=== PATIENT | female | born 1985 | race Caucasian/White ===

== ENCOUNTER → 2017-02-02 | Outpatient (CLI) | payer OTHER ==
[~2017-02-02] MED LIST: ALBU17IN; ALBU83IN; AMOX500C PO; BENA25CA4 PO; IBUP600T26; LIDO1SOL7 MT
--- NOTE | 2017-02-02 18:17 | REP ---
THYROID ULTRASOUND: HISTORY: Goiter. COMPARISON: None. The right lobe of the thyroid gland measures 3.9 x 1.7 x 1.5 cm. The left lobe measures 6.2 x 3.4 x 4.3 cm. The isthmus measures 3.6 mm. In the superior pole of the right lobe there is a solid nodule which measures 1 x 1.3 x 0.8 cm. In the left lobe there is a large mixed complex lesion which measures 3.9 x 5.2 x 2.8 cm. IMPRESSION: Solid right lobe nodule and mixed left lobe nodule as described above. Signed by Parker Wilson DO 02/02/2017 06:43 P
== END ==
LOC: M RAD 16:56
PROVIDERS: ATTEND Physician Assistant Medical
DX: E04.2 Nontoxic multinodular goiter (principal)

== ENCOUNTER 2017-02-04 12:28 | Emergency (ER) | payer OTHER ==
[~2017-02-04] VITALS: Ht 170.2 cm; Wt 108.4 kg
[2017-02-04 12:30] VITALS: BP 135/91
[2017-02-04] MEDS ORDERED: ALBU83IN (12:50)
[2017-02-04] MEDS ORDERED: BENA25CA4 PO (12:50)
[2017-02-04] MEDS ORDERED: ALBU17IN (12:50)
[2017-02-04] MEDS ORDERED: IBUP600T26 (12:50)
[2017-02-04] MEDS ORDERED: AMOX500C PO (13:02)
[2017-02-04] MEDS ORDERED: LIDO1SOL7 MT (13:02)
== END 2017-02-04 13:17 | disposition home or self-care (01) ==
LOC: M ED 13:04
DX: J02.9 Acute pharyngitis, unspecified (principal); J45.909 Unspecified asthma, uncomplicated; F99 Mental disorder, not otherwise specified; E66.9 Obesity, unspecified; Z88.5 Allergy status to narcotic agent; Z88.8 Allergy status to other drugs, medicaments and biological substances; Z88.2 Allergy status to sulfonamides

== ENCOUNTER 2017-03-25 14:37 | Emergency (ER) | payer OTHER ==
[~2017-03-25] VITALS: Ht 167.6 cm; Wt 108.9 kg
[2017-03-25 14:38] VITALS: BP 128/79
[2017-03-25] MEDS ORDERED: [UNRECOGNIZED DRUG - OTHER] PO (14:54)
[2017-03-25] MEDS ORDERED: IPRATROPIUM 0.5MG/ALBUTEROL 2.5MG INH SOL UD 3ML (DUONEB)(J7620) NEB ONE (15:15)
[2017-03-25] MEDS ORDERED: TESS100C PO (16:03)
--- NOTE | 2017-03-26 07:01 | REP ---
CHEST, TWO VIEWS: COMPARISON: 05/12/2015. There is no evidence of acute infiltrate. No pleural effusion is seen. The heart is normal in size. The mediastinal silhouette is unremarkable. The visualized osseous structures are intact. IMPRESSION: No acute pulmonary disease. Signed by Román Varela MD 03/26/2017 07:50 P
== END 2017-03-25 16:24 | disposition home or self-care (01) ==
LOC: M ED 15:09
DX: B34.9 Viral infection, unspecified (principal); R05 Cough; J45.909 Unspecified asthma, uncomplicated; F41.9 Anxiety disorder, unspecified; Z88.1 Allergy status to other antibiotic agents; Z88.2 Allergy status to sulfonamides; Z88.5 Allergy status to narcotic agent; Z88.6 Allergy status to analgesic agent; Z88.8 Allergy status to other drugs, medicaments and biological substances

== ENCOUNTER 2017-04-10 11:25 | Emergency (ER) | payer OTHER ==
[~2017-04-10] VITALS: Ht 170.2 cm; Wt 77.1 kg
[~2017-04-10 11:25] MED LIST changes: +TESS100C PO; +[UNRECOGNIZED DRUG - OTHER] PO
[2017-04-10 11:26] VITALS: BP 115/69
[2017-04-10] MEDS ORDERED: PERC5TAB6 PO (12:25)
[2017-04-10] MEDS ORDERED: PERCOCET 5MG/325MG TAB PO ONE (12:30)
== END 2017-04-10 12:43 | disposition home or self-care (01) ==
LOC: M ED 12:14
DX: S83.91XA Sprain of unspecified site of right knee, initial encounter (principal); W01.198A Fall on same level from slipping, tripping and stumbling with subsequent striking against other object, initial encounter; Y92.89 Other specified places as the place of occurrence of the external cause; Y93.89 Activity, other specified; Y99.8 Other external cause status; F41.0 Panic disorder [episodic paroxysmal anxiety]; F42.9 Obsessive-compulsive disorder, unspecified

== ENCOUNTER → 2017-07-11 | Outpatient (CLI) | payer OTHER ==
[~2017-07-11] MED LIST changes: +IBUP-1022; -IBUP600T26; +PERC5TAB12 PO
--- NOTE | 2017-07-11 20:21 | REP ---
Clinical: Back pain . Technique: AP, lateral, bilateral oblique, and coned-down views. Findings: Alignment and lordosis is maintained. The vertebral bodies including transverse process and spinous processes are intact and normal for age. There is no evidence for acute fracture / compression injury or subluxation. No evidence for spondylolysis or spondylolisthesis. Age-related changes are appreciated without obvious overt degenerative changes by radiographic evaluation. Impression: Age appropriate lumbosacral spine radiograph series. If the patient remains symptomatic consider MRI for further investigation. Signed by Kendell Vasquez MD 07/11/2017 08:12 P
--- NOTE | 2017-07-11 20:22 | REP ---
Clinical: thoracic back pain. Technique: AP, lateral, and swimmers views. Findings: Alignment and kyphosis is maintained. Vertebral bodies intact. No acute fracture / compression injury or subluxation. Minimal age-related changes are appreciated. Paravertebral soft tissues are normal. Impression: Age appropriate thoracic spine series. Signed by Kendell Vasquez MD 07/11/2017 08:13 P
== END ==
LOC: M WUC 18:49
PROVIDERS: ATTEND Nurse Practitioner Family
DX: M54.6 Pain in thoracic spine (principal)

== ENCOUNTER 2017-07-12 19:51 | Emergency (ER) | payer OTHER ==
[~2017-07-12] VITALS: Ht 167.6 cm; Wt 229.0 kg
[2017-07-12] MEDS ORDERED: KETOROLAC 30 MG/ML VIAL (J1885) IV ONE (20:15)
[2017-07-12] MEDS ORDERED: NS 1,000 ML IV ONE (20:15)
[2017-07-12] MEDS ORDERED: METOCLOPRAMIDE INJ 10MG/2ML VIAL (J2765) IV ONE (20:15)
[2017-07-12 21:04] VITALS: BP 138/83
[2017-09-16] MEDS ORDERED: TESS100C PO (15:47)
== END 2017-07-12 21:06 | disposition home or self-care (01) ==
LOC: M ED 20:19
DX: G43.909 Migraine, unspecified, not intractable, without status migrainosus (principal); G89.29 Other chronic pain; E66.9 Obesity, unspecified; F99 Mental disorder, not otherwise specified; Z79.899 Other long term (current) drug therapy; Z88.5 Allergy status to narcotic agent; Z88.8 Allergy status to other drugs, medicaments and biological substances; Z88.1 Allergy status to other antibiotic agents; Z88.2 Allergy status to sulfonamides
CPT/HCPCS: 96374; 96375; 99283; J1885; J2765

== ENCOUNTER → 2017-10-27 | Outpatient (CLI) | payer OTHER | LOC: M WUC 13:40 | PROVIDERS: ATTEND Otolaryngology | DX: E04.1 Nontoxic single thyroid nodule (principal) ==

== ENCOUNTER 2017-12-13 10:23 | Emergency (ER) | payer OTHER ==
[2017-12-13] MEDS: IBUPROFEN 800 MG TAB PO (11:15)
[2017-12-13] MEDS: PERCOCET 5MG/325MG TAB PO (11:33)
[2017-12-13] MEDS: METHOCARBAMOL 500 MG TAB PO (11:33)
== END 2017-12-13 11:35 | disposition home or self-care (01) ==
LOC: M ED 10:23
DX: M54.17 Radiculopathy, lumbosacral region (principal); M54.42 Lumbago with sciatica, left side
CPT/HCPCS: 99282

== ENCOUNTER 2017-12-22 10:43 | Emergency (ER) | payer OTHER ==
[2017-12-22 12:20] LABS: BASO % 0.5 % (0.0-1.0); EOS # 0.1 10^3/uL (0.0-0.50); EOS % 1.4 % (0.0-3.0); HEMATOCRIT 43.2 % (36.0-47.0); HEMOGLOBIN 14.6 g/dl (12.0-16.0); IMMATURE GRANULOCYTE % 0.3 % (0-3.0); LYMPH # 2.2 10^3/uL (1.5-4.5); LYMPH % 28.7 % (24.0-44.0); MEAN CORPUSCULAR HEMOGLOBIN 28.2 pg (27.0-33.0); MEAN CORPUSCULAR HGB CONC 33.8 g/dl (32.0-36.5); MEAN CORPUSCULAR VOLUME 83.4 fl (80.0-96.0); MONO # 0.5 10^3/uL (0.0-0.8); NEUTROPHILS # 4.9 10^3/uL (1.8-7.7); NEUTROPHILS % 63.1 % (36.0-66.0); PLATELET COUNT, AUTOMATED 246 10^3/uL (150-450); RED BLOOD COUNT 5.18 10^6/uL (4.00-5.40); RED CELL DISTRIBUTION WIDTH 13.1 % (11.5-14.5); WHITE BLOOD COUNT 7.8 10^3/uL (4.0-10.0)
[2017-12-22] MEDS: ACETAMINOPHEN 325 MG TAB PO (12:35)
[2017-12-22 13:05] LABS: ANION GAP 6 MEQ/L (8-16); BLOOD UREA NITROGEN 15 MG/DL (7-18); CALCIUM LEVEL 9.2 MG/DL (8.5-10.1); CARBON DIOXIDE LEVEL 27 MEQ/L (21-32); CHLORIDE LEVEL 108 MEQ/L (98-107); CREATININE FOR GFR 0.76 MG/DL (0.55-1.30); FREE T4 0.83 NG/DL (0.76-1.46); GLOMERULAR FILTRATION RATE > 60.0 (>60); GLUCOSE, FASTING 93 MG/DL (70-100); MAGNESIUM LEVEL 2.4 MG/DL (1.8-2.4); POTASSIUM SERUM 4.2 MEQ/L (3.5-5.1); SODIUM LEVEL 141 MEQ/L (136-145)
== END 2017-12-22 13:40 | disposition home or self-care (01) ==
LOC: M ED 10:43
DX: E04.1 Nontoxic single thyroid nodule (principal); M54.2 Cervicalgia; J45.909 Unspecified asthma, uncomplicated; F41.9 Anxiety disorder, unspecified; M54.5 Low back pain; Z88.5 Allergy status to narcotic agent; Z88.8 Allergy status to other drugs, medicaments and biological substances; Z88.2 Allergy status to sulfonamides; Z79.899 Other long term (current) drug therapy; Z79.51 Long term (current) use of inhaled steroids
CPT/HCPCS: 76536

== ENCOUNTER → 2018-01-08 | Outpatient (CLI) | payer OTHER | LOC: M WUC 14:40 | DX: M25.561 Pain in right knee (principal) | CPT/HCPCS: 73564 ==

== ENCOUNTER 2018-06-04 13:04 | Emergency (ER) | payer OTHER ==
[2018-06-04] MEDS: NORCO, ANEXSIA 5/325MG TABLET (HYDROcodone/ACETAMINOPHEN) PO (17:22)
== END 2018-06-04 20:14 | disposition home or self-care (01) ==
LOC: M ED 13:04
DX: S62.144A Nondisplaced fracture of body of hamate [unciform] bone, right wrist, initial encounter for closed fracture (principal); W22.09XA Striking against other stationary object, initial encounter; Y92.098 Other place in other non-institutional residence as the place of occurrence of the external cause; J45.909 Unspecified asthma, uncomplicated; G43.909 Migraine, unspecified, not intractable, without status migrainosus; F42.9 Obsessive-compulsive disorder, unspecified; F41.0 Panic disorder [episodic paroxysmal anxiety]; E34.9 Endocrine disorder, unspecified; Z88.8 Allergy status to other drugs, medicaments and biological substances; Z88.5 Allergy status to narcotic agent; Z88.2 Allergy status to sulfonamides; Z79.51 Long term (current) use of inhaled steroids
CPT/HCPCS: 73110

== ENCOUNTER 2018-07-22 19:12 | Emergency (ER) | payer OTHER ==
[2018-07-22] MEDS: NS 1,000 ML IV (20:56)
[2018-07-22 21:12] LABS: BASO % 0.4 % (0.0-1.0); EOS # 0.1 10^3/uL (0.0-0.50); EOS % 0.7 % (0.0-3.0); HEMATOCRIT 43.5 % (36.0-47.0); HEMOGLOBIN 14.6 g/dl (12.0-15.5); IMMATURE GRANULOCYTE % 0.2 % (0-3.0); LYMPH # 2.6 10^3/uL (1.5-4.5); LYMPH % 27.8 % (24.0-44.0); MEAN CORPUSCULAR HEMOGLOBIN 28.5 pg (27.0-33.0); MEAN CORPUSCULAR HGB CONC 33.6 g/dl (32.0-36.5); MEAN CORPUSCULAR VOLUME 84.8 fl (80.0-96.0); MONO # 0.5 10^3/uL (0.0-0.8); MONO % 5.3 % (0.0-5.0); NEUTROPHILS % 65.6 % (36.0-66.0); PLATELET COUNT, AUTOMATED 231 10^3/uL (150-450); RED BLOOD COUNT 5.13 10^6/uL (4.00-5.40); RED CELL DISTRIBUTION WIDTH 12.8 % (11.5-14.5); WHITE BLOOD COUNT 9.2 10^3/uL (4.0-10.0)
[2018-07-22 21:27] LABS: ANION GAP 7 MEQ/L (8-16); BLOOD UREA NITROGEN 7 MG/DL (7-18); CALCIUM LEVEL 9.4 MG/DL (8.5-10.1); CARBON DIOXIDE LEVEL 26 MEQ/L (21-32); CHLORIDE LEVEL 109 MEQ/L (98-107); CREATININE FOR GFR 0.76 MG/DL (0.55-1.30); GLOMERULAR FILTRATION RATE > 60.0 (>60); GLUCOSE, FASTING 91 MG/DL (70-100); POTASSIUM SERUM 3.8 MEQ/L (3.5-5.1); SODIUM LEVEL 142 MEQ/L (136-145)
[2018-07-22 21:32] LABS: PROTHROMBIN TIME 12.3 SECONDS (12.1-14.4)
[2018-07-22 21:33] LABS: PARTIAL THROMBOPLASTIN TIME 33.9 SECONDS (25.4-37.6)
[2018-07-22] MEDS ORDERED: ISOVUE-370 76% 100ML VIAL (Q9967) As Ordered (21:33)
[2018-07-22] MEDS: KETOROLAC 30 MG/ML VIAL (J1885) IV (21:40)
== END 2018-07-22 23:10 | disposition home or self-care (01) ==
LOC: M ED 19:12
DX: T71.193A Asphyxiation due to mechanical threat to breathing due to other causes, assault, initial encounter (principal); Y07.03 Male partner, perpetrator of maltreatment and neglect; Y92.89 Other specified places as the place of occurrence of the external cause; Z88.5 Allergy status to narcotic agent; Z88.8 Allergy status to other drugs, medicaments and biological substances; Z88.2 Allergy status to sulfonamides
CPT/HCPCS: Q9967

== ENCOUNTER 2018-09-06 12:41 | Emergency (ER) | payer OTHER | END 2018-09-06 15:54 | disposition home or self-care (01) | LOC: M ED 12:41 | DX: Z04.71 Encounter for examination and observation following alleged adult physical abuse (principal); J45.909 Unspecified asthma, uncomplicated; F43.10 Post-traumatic stress disorder, unspecified; F42.9 Obsessive-compulsive disorder, unspecified; Z79.899 Other long term (current) drug therapy; Z88.1 Allergy status to other antibiotic agents; Z88.2 Allergy status to sulfonamides; Z88.5 Allergy status to narcotic agent; Z88.8 Allergy status to other drugs, medicaments and biological substances | CPT/HCPCS: 99282 ==

== ENCOUNTER 2018-10-01 16:58 | Emergency (ER) | payer OTHER ==
[2018-10-01] MEDS: MAGIC MOUTHWASH SUSPENSION BTL SSP (17:43)
[2018-10-01 18:22] LABS: BASO % 0.4 % (0.0-1.0); EOS % 0.5 % (0.0-3.0); HEMOGLOBIN 14.2 g/dl (12.0-15.5); IMMATURE GRANULOCYTE % 0.2 % (0-3.0); LYMPH # 2.2 10^3/uL (1.5-4.5); LYMPH % 26.6 % (24.0-44.0); MEAN CORPUSCULAR HEMOGLOBIN 28.3 pg (27.0-33.0); MEAN CORPUSCULAR VOLUME 85.8 fl (80.0-96.0); MONO # 0.4 10^3/uL (0.0-0.8); MONO % 4.7 % (0.0-5.0); NEUTROPHILS # 5.5 10^3/uL (1.8-7.7); NEUTROPHILS % 67.6 % (36.0-66.0); PLATELET COUNT, AUTOMATED 207 10^3/uL (150-450); RED BLOOD COUNT 5.01 10^6/uL (4.00-5.40); RED CELL DISTRIBUTION WIDTH 12.8 % (11.5-14.5); WHITE BLOOD COUNT 8.2 10^3/uL (4.0-10.0)
[2018-10-01 18:34] LABS: FREE THYROXINE INDEX 2.5 % (1.3-4.8); T UPTAKE 33 % (30-39); THYROXINE (T4) 7.5 UG/DL (4.5-12.0)
[2018-10-01 19:25] LABS: APPEARANCE, URINE CLEAR (CLEAR); BACTERIA, URINE AUTO NEGATIVE (NEGATIVE); BILIRUBIN, URINE AUTO NEGATIVE (NEGATIVE); BLOOD, URINE BLOOD 1+ (NEGATIVE); COLOR, URINE YELLOW (YELLOW); GLUCOSE, URINE (UA) AUTO NEGATIVE (NEGATIVE); KETONE, URINE AUTO NEGATIVE (NEGATIVE); LEUKOCYTE ESTERASE, URINE AUTO NEGATIVE (NEGATIVE); MUCUS, URINE SMALL (NEGATIVE); NITRITE, URINE AUTO NEGATIVE (NEGATIVE); PROTEIN, URINE AUTO NEGATIVE (NEGATIVE); RBC, URINE AUTO 1 /HPF (0-3); SPECIFIC GRAVITY URINE AUTO 1.011 (1.002-1.035); SQUAMOUS EPITHELIAL CELL UR AU 0 /HPF (0-6); UROBILINOGEN, URINE AUTO 0.2 mg/dL (0.0-2.0); WBC, URINE AUTO 2 /HPF (0-3)
[2018-10-01 19:36] LABS: AMPHETAMINES LEVEL URINE NEGATIVE (NEGATIVE); BARBITURATES URINE NEGATIVE (NEGATIVE); BENZODIAZEPINES URINE NEGATIVE (NEGATIVE); CANNABINOIDS URINE NEGATIVE (NEGATIVE); COCAINE METABOLITE URINE NEGATIVE (NEGATIVE); METHADONE URINE NEGATIVE (NEGATIVE); OPIATES URINE NEGATIVE (NEGATIVE); PHENCYCLIDINE URINE NEGATIVE (NEGATIVE)
[2018-10-01 21:34] LABS: CHLAMYDIA DNA AMPLIFICATION NEGATIVE (NEGATIVE); GC DNA AMPLIFICATION NEGATIVE (NEGATIVE)
== END 2018-10-01 21:02 | disposition home or self-care (01) ==
LOC: M ED 16:58
DX: J02.0 Streptococcal pharyngitis (principal)
CPT/HCPCS: 84443

== ENCOUNTER → 2019-04-04 | Outpatient (CLI) | payer OTHER ==
[~2019-04-04] MED LIST changes: +ADV500INH INH; +APAP; +HYDROCO; +IBUP80TA PO; -LIDO1SOL7 MT; +LIDO1SOL8 MT; +MAGICMW SS; +ROBA500T PO; +SOMA350T PO; +ZOFR4TAB16 PO; +[UNRECOGNIZED DRUG - CODE] XX
--- NOTE | 2019-04-04 12:05 | REP ---
Clinical: Pelvic pain . Technique: Transabdominal pelvic ultrasound followed by transvaginal examination for better evaluation of the endometrium and adnexa with color Doppler evaluation of the ovaries. Comparison: 12/31/2015 Findings: Bladder is unremarkable and measures 12.2 x 12.4 x 9.5 cm . Heterogeneous retroverted uterus measures 7.2 x 4.8 x 5.4 cm. The endometrial complex measures 3.2 mm thickness. 7 mm myometrial cyst along the anterior fundal region is nonspecific and likely insignificant. Bilateral ovaries are normal in appearance and vascularity without evidence for torsion. Right ovary measures 3.4 x 1.5 x 2.1 cm ; R I = 0.57 . Left ovary measures 2.0 x 2.7 x 3.4 cm ; R I = 0.65 . No pelvic free fluid or adnexal mass lesion . Impression: Relatively normal examination with sub centimeter myometrial cyst likely being insignificant. Ovaries without torsion. No free fluid. Electronically Signed by Kendell Vasquez MD 04/04/2019 11:56 A
== END ==
LOC: M RAD 10:44
PROVIDERS: ATTEND Specialist
DX: M85.862 Other specified disorders of bone density and structure, left lower leg (principal)

== ENCOUNTER → 2019-04-15 | Outpatient (CLI) | payer OTHER ==
[2019-04-15 20:06] LABS: FOLLICLE STIMULATING HORMONE 9.2 mIU/mL; FREE T4 0.95 NG/DL (0.76-1.46); LUTEINIZING HORMONE 12.6 mIU/mL; PROGESTERONE 1.16 NG/ML; PROLACTIN 19.1 NG/ML; THYROID STIMULATING HORMONE 1.45 uIU/ML (0.358-3.740)
== END ==
LOC: M WUC 16:12
PROVIDERS: ATTEND Specialist
DX: N93.8 Other specified abnormal uterine and vaginal bleeding (principal)

== ENCOUNTER 2019-05-22 17:10 | Emergency (ER) | payer OTHER ==
[~2019-05-22] VITALS: Ht 175.3 cm; Wt 87.9 kg
[2019-05-22] MEDS ORDERED: MAGIC MOUTHWASH SUSPENSION BTL SS STA (18:59)
[2019-05-22] MEDS ORDERED: CLOM50TA9 (19:34)
[2019-05-22] MEDS ORDERED: METOCLOPRAMIDE 10 MG TAB PO ONE (19:45)
--- NOTE | 2019-05-22 20:05 | REPVR ---
EXAM: CT Maxillofacial Without Contrast EXAM DATE/TIME: 05/22/2019 7:08 PM CLINICAL HISTORY: 34 years old, female; Injury or trauma; Fall; Initial encounter; Blunt trauma (contusions or hematomas); Maxilla; Patient HX: PT refused to remove jewlrey; Additional info: Fall, PT tender severe medial maxillary TECHNIQUE: Imaging protocol: Axial computed tomography images of the face without intravenous contrast. Coronal and sagittal reformatted images were created and reviewed. Radiation optimization: All CT scans at this facility use at least one of these dose optimization techniques: automated exposure control; mA and/or kV adjustment per patient size (includes targeted exams where dose is matched to clinical indication); or iterative reconstruction. COMPARISON: No relevant prior studies available. FINDINGS: Orbits: No acute intraorbital abnormality. Globes are unremarkable. Sinuses: Normal. No air-fluid levels. Bones/joints: No acute fracture. Soft tissues: Unremarkable. IMPRESSION: Negative CT facial bones. No fractures. Electronically signed by: Avery Moseley On 05/22/2019 20:04:40 PM
[2019-05-22] MEDS ORDERED: LIDO1SOL8 PO (20:11)
[2019-05-22 20:19] VITALS: BP 120/76
== END 2019-05-22 20:20 | disposition home or self-care (01) ==
LOC: M ED 17:10
DX: K08.89 Other specified disorders of teeth and supporting structures (principal); W01.198A Fall on same level from slipping, tripping and stumbling with subsequent striking against other object, initial encounter; Y92.098 Other place in other non-institutional residence as the place of occurrence of the external cause; J45.909 Unspecified asthma, uncomplicated; G43.909 Migraine, unspecified, not intractable, without status migrainosus; F99 Mental disorder, not otherwise specified; Z88.8 Allergy status to other drugs, medicaments and biological substances; Z88.2 Allergy status to sulfonamides; Z88.5 Allergy status to narcotic agent; Z88.6 Allergy status to analgesic agent; Z79.899 Other long term (current) drug therapy

== ENCOUNTER → 2019-05-31 | Outpatient (REF) | payer OTHER ==
[~2019-05-31] MED LIST changes: +CLOM50TA9; +LIDO1SOL8 PO
== END ==
LOC: M LAB REF 10:37
PROVIDERS: ATTEND Physician Assistant
DX: R30.0 Dysuria (principal)

== ENCOUNTER 2019-10-12 11:33 | Emergency (ER) | payer OTHER ==
[~2019-10-12] VITALS: Ht 170.2 cm; Wt 85.8 kg
[2019-10-12] MEDS ORDERED: BANO25CA PO (11:47)
[2019-10-12] MEDS ORDERED: PREN1TAB15 (11:47)
[2019-10-12] MEDS ORDERED: BENZOCAINE 20% GEL 9GM TUBE (ANBESOL MAX STRENGTH) TOP ONE (12:45)
[2019-10-12 12:53] LABS: BASO # 0.1 10^3/uL (0.0-0.2); BASO % 0.7 % (0.0-1.0); EOS # 0.1 10^3/uL (0.0-0.5); HEMATOCRIT 41.3 % (36.0-47.0); HEMOGLOBIN 13.4 g/dl (12.0-15.5); LYMPH % 28.3 % (24.0-44.0); MEAN CORPUSCULAR HEMOGLOBIN 29.3 pg (27.0-33.0); MEAN CORPUSCULAR HGB CONC 32.4 g/dl (32.0-36.5); MEAN CORPUSCULAR VOLUME 90.4 fl (80.0-96.0); MONO # 0.4 10^3/uL (0.0-0.8); NEUTROPHILS # 4.5 10^3/uL (1.5-8.5); NEUTROPHILS % 62.9 % (36.0-66.0); PLATELET COUNT, AUTOMATED 196 10^3/uL (150-450); RED BLOOD COUNT 4.57 10^6/uL (4.00-5.40); WHITE BLOOD COUNT 7.1 10^3/uL (4.0-10.0)
[2019-10-12 13:13] LABS: ERYTHROCYTE SEDIMENTATION RATE 9 mm/hr (0-20)
[2019-10-12] MEDS ORDERED: ISOVUE-370 76% 100ML VIAL (Q9967) As Ordered ONE (13:23)
--- NOTE | 2019-10-12 13:46 | REP ---
Clinical: Right-sided facial swelling Technique: Axial contrast images through the facial bones to include the mandible with coronal and sagittal re-formations using 100 ml Isovue 370 intravenous contrast material. Findings: Examination is significantly limited due to motion artifact. The osseous structures are grossly intact and there is no evidence for fracture or dislocation. Specifically, the bilateral zygomatic arches, nasal bones, and mandible including bilateral temporomandibular joints appear normal and symmetric. The sinuses and mastoid air cells are all well aerated and clear without fluid level to suggest occult trauma. The bilateral orbits including the globes and intraconal contents appear symmetric and normal. The surrounding soft tissues are grossly unremarkable. Impression: No evidence for acute pathology or trauma/injury. Electronically Signed by Kendell Vasquez MD 10/12/2019 01:38 P
[2019-10-12] MEDS ORDERED: AUGM875T28 PO (14:16)
[2019-10-12 14:21] VITALS: BP 114/52
== END 2019-10-12 14:22 | disposition home or self-care (01) ==
LOC: M ED 11:33
DX: K02.9 Dental caries, unspecified (principal); K05.10 Chronic gingivitis, plaque induced; K05.30 Chronic periodontitis, unspecified; J45.909 Unspecified asthma, uncomplicated; F43.10 Post-traumatic stress disorder, unspecified; F42.9 Obsessive-compulsive disorder, unspecified; Z88.0 Allergy status to penicillin; Z88.1 Allergy status to other antibiotic agents; Z88.2 Allergy status to sulfonamides; Z88.5 Allergy status to narcotic agent; Z88.8 Allergy status to other drugs, medicaments and biological substances
CPT/HCPCS: 36415; 70487; 80047; 84702; 85025; 85652; 86140; 99284; Q9967

== ENCOUNTER 2019-10-14 14:14 | Emergency (ER) | payer OTHER ==
[~2019-10-14] VITALS: Ht 170.2 cm; Wt 85.7 kg
[~2019-10-14 14:14] MED LIST changes: +AUGM875T28 PO; +BANO25CA PO; +PREN1TAB15
[2019-10-14] MEDS ORDERED: HYDR-4514 (14:21)
[2019-10-14] MEDS ORDERED: CLIN300C5 (14:21)
[2019-10-14 16:32] LABS: BLOOD UREA NITROGEN 11 MG/DL (7-18); CALCIUM LEVEL 7.8 MG/DL (8.5-10.1); CARBON DIOXIDE LEVEL 25 MEQ/L (21-32); CHLORIDE LEVEL 113 MEQ/L (98-107); CREATININE FOR GFR 0.75 MG/DL (0.55-1.30); GLOMERULAR FILTRATION RATE > 60.0 (>60); GLUCOSE, FASTING 85 MG/DL (70-100); POTASSIUM SERUM 3.2 MEQ/L (3.5-5.1); SODIUM LEVEL 145 MEQ/L (136-145)
[2019-10-14] MEDS ORDERED: ISOVUE-370 76% 100ML VIAL (Q9967) As Ordered ONE (16:45)
[2019-10-14 17:13] LABS: HEMATOCRIT 36.3 % (36.0-47.0); HEMOGLOBIN 11.7 g/dl (12.0-15.5); MEAN CORPUSCULAR HEMOGLOBIN 29.2 pg (27.0-33.0); MEAN CORPUSCULAR HGB CONC 32.2 g/dl (32.0-36.5); MEAN CORPUSCULAR VOLUME 90.5 fl (80.0-96.0); PLATELET COUNT, AUTOMATED 156 10^3/uL (150-450); RED BLOOD COUNT 4.01 10^6/uL (4.00-5.40); WHITE BLOOD COUNT 6.2 10^3/uL (4.0-10.0)
--- NOTE | 2019-10-14 17:26 | REPVR ---
PROCEDURE INFORMATION: Exam: CT Maxillofacial With Contrast Exam date and time: 10/14/2019 3:28 PM Age: 34 years old Clinical history: Other: Swelling right face; Patient HX: PT moved entire time during scan despite being asked to remain still, PT rescanned; Additional info: Dental caries/fx tooth, swelling to RT maxillary area, inc blanca TECHNIQUE: Imaging protocol: Computed tomography images of the face with intravenous contrast. Radiation optimization: All CT scans at this facility use at least one of these dose optimization techniques: automated exposure control; mA and/or kV adjustment per patient size (includes targeted exams where dose is matched to clinical indication); or iterative reconstruction. Contrast material: Isovue 370; Contrast volume: 75 ml; Contrast route: IV; COMPARISON: CT Maxillofacial with contrast 10/12/2019 1:23 PM FINDINGS: Tubes, catheters and devices: LEFT lower labial metallic ornament. RIGHT nostril metallic ornament. Bilateral tragus metallic ornaments. Orbits: Orbits are normal. Globes are unremarkable. Sinuses: Normal. No air-fluid levels. Bones/joints: No acute fracture. Soft tissues: Mild soft tissue swelling medial RIGHT lower face extending to the lower margin of the nostril and lateral philtrum. No definite soft tissue fluid collection identified. Other findings: Motion blurring is present on multiple images. IMPRESSION: 1. Mild soft tissue swelling medial RIGHT lower face. Cellulitis not excluded. Clinical correlation is recommended. 2. Limitations of motion. Electronically signed by: Curly Allred On 10/14/2019 17:25:48 PM
[2019-10-14 19:28] VITALS: BP 122/84
== END 2019-10-14 19:33 | disposition home or self-care (01) ==
LOC: M ED 14:14
DX: S00.83XA Contusion of other part of head, initial encounter (principal); W01.198A Fall on same level from slipping, tripping and stumbling with subsequent striking against other object, initial encounter; Y92.098 Other place in other non-institutional residence as the place of occurrence of the external cause; K02.9 Dental caries, unspecified; Z88.8 Allergy status to other drugs, medicaments and biological substances; Z88.0 Allergy status to penicillin; Z88.2 Allergy status to sulfonamides; Z88.5 Allergy status to narcotic agent; Z88.6 Allergy status to analgesic agent; Z79.899 Other long term (current) drug therapy; Z79.891 Long term (current) use of opiate analgesic; Z79.2 Long term (current) use of antibiotics
CPT/HCPCS: 70487; 80048; 84702; 85027; 99284; Q9967

== ENCOUNTER → 2019-11-14 | Outpatient (CLI) | payer OTHER ==
[~2019-11-14] MED LIST changes: +CLIN300C5; +HYDR-4514
--- NOTE | 2019-11-14 18:20 | REP ---
History: The procedure was performed by LUPE Germain, under the direct supervision of Dr. Diaz. The images were reviewed with Dr. Diaz. The patient was referred for a hysterosalpingogram. The referring clinician catheterize the cervix and injected contrast well I obtained fluoroscopic images. The uterine cavity opacifies well and appears normal in configuration with no definite contour abnormalities or filling defect. There is free passage of contrast material through both non dilated fallopian tubes, and there appears to be free intraperitoneal spillage bilaterally. Impression: 1. Bilateral fallopian tubes appear patent. 0.6 minutes of fluoroscopy time was utilized for this procedure. Some fluoroscopic images are performed with last image hold technology. These images require no additional radiation. Reviewed by LUPE Cai 11/14/2019 04:15 P Electronically Signed by Rich Diaz MD 11/14/2019 06:10 P
== END ==
LOC: M RADPRO 11:16
PROVIDERS: ATTEND Specialist
DX: N97.9 Female infertility, unspecified (principal)

== ENCOUNTER → 2019-12-04 | Outpatient (CLI) | payer OTHER ==
[2019-12-04 17:34] LABS: HEMATOCRIT 42.9 % (36.0-47.0); HEMOGLOBIN 13.6 g/dl (12.0-15.5); MEAN CORPUSCULAR HEMOGLOBIN 28.7 pg (27.0-33.0); MEAN CORPUSCULAR HGB CONC 31.7 g/dl (32.0-36.5); MEAN CORPUSCULAR VOLUME 90.5 fl (80.0-96.0); PLATELET COUNT, AUTOMATED 207 10^3/uL (150-450); RED BLOOD COUNT 4.74 10^6/uL (4.00-5.40)
[2019-12-04 17:42] LABS: ALBUMIN 3.7 GM/DL (3.2-5.2); ALT/SGPT 16 U/L (12-78); BILIRUBIN,TOTAL 0.5 MG/DL (0.2-1.0); BLOOD UREA NITROGEN 11 MG/DL (7-18); CARBON DIOXIDE LEVEL 24 MEQ/L (21-32); CHLORIDE LEVEL 109 MEQ/L (98-107); CREATININE FOR GFR 0.79 MG/DL (0.55-1.30); GLOMERULAR FILTRATION RATE > 60.0 (>60); GLUCOSE, FASTING 80 MG/DL (70-100); POTASSIUM SERUM 3.8 MEQ/L (3.5-5.1); SODIUM LEVEL 139 MEQ/L (136-145); TOTAL PROTEIN 6.9 GM/DL (6.4-8.2)
[2019-12-04 17:52] LABS: TOTAL 25(OH) VITAMIN D 37.5 NG/ML (30.0-100.0)
[2019-12-04 17:53] LABS: TESTOSTERONE 29 NG/DL (14-76)
[2019-12-04 18:03] LABS: RUBELLA IgG QUALITATIVE IMMUNE (IMMUNE)
[2019-12-06 10:23] LABS: HEPATITIS B SURFACE ANTIGEN NEGATIVE (NEGATIVE)
[2019-12-06 10:51] LABS: HEPATITIS C VIRUS ABY INDEX < 0.0 INDEX (<0.8); HIV 1&2 SCREEN CENTAUR NEGATIVE (NEGATIVE)
== END ==
LOC: M PLALAB 13:26
PROVIDERS: ATTEND Obstetrics & Gynecology Reproductive Endocrinology
DX: Z31.41 Encounter for fertility testing (principal)

== ENCOUNTER → 2019-12-06 | Outpatient (CLI) | payer OTHER ==
--- NOTE | 2019-12-06 09:50 | REP ---
Transvaginal pelvic sonography: History: Ovarian dysfunction. Follicle study. Findings: Uterine dimensions are normal at 7.8 x 4.9 x 5.9 cm. Endometrial echo is 1.3 cm thick. On the right side of the uterus there is an 8 mm anechoic cyst. No free fluid. Overall dimensions of the right ovary today are 5.5 x 2.9 x 4.2 cm. There is a 4.0 x 2.6 cm septated complex cyst in the right ovary and a 1.8 x 0.9 cm hypoechoic cyst. There is a 0.9 x 0.8 cm hypoechoic cyst. In addition, the right ovary contains five follicles ranging in size from 0.2-0.6 cm. The overall dimensions of the left ovary are 3.3 x 2.1 x 3.2 cm. There are four complex cysts in the left ovary over a centimeter in diameter measured as follows: 1.7 x 1.4, 1.7 x 0.8, 1.8 x 1.4, and 1.3 x 0.8 cm. In addition, the left ovary contains 12 follicles ranging in size from 0.2-0.6 cm. Impression: Ovarian follicle study as above. Complex cysts noted bilaterally in the ovaries. Electronically Signed by Rich Diaz MD 12/06/2019 09:42 A
[2019-12-06 10:31] LABS: THYROID STIMULATING HORMONE 2.44 uIU/ML (0.358-3.740)
[2019-12-06 11:02] LABS: PROGESTERONE 0.52 NG/ML
[2019-12-06 11:04] LABS: ESTRADIOL 51.1 PG/ML; LUTEINIZING HORMONE 5.2 mIU/mL
[2019-12-06 11:05] LABS: FOLLICLE STIMULATING HORMONE 7.8 mIU/mL
== END ==
LOC: M RAD 09:01
PROVIDERS: ATTEND Obstetrics & Gynecology Reproductive Endocrinology
DX: N83.201 Unspecified ovarian cyst, right side (principal); N83.202 Unspecified ovarian cyst, left side

== ENCOUNTER → 2019-12-18 | Outpatient (CLI) | payer OTHER ==
[2019-12-18 11:11] LABS: HCG, SERUM QUANTITATIVE < 1.0 MIU/ML
--- NOTE | 2019-12-18 11:11 | REP ---
Pelvic ultrasound, endovaginal imaging for ovarian follicle analysis, stat request : Right ovary: Right ovary is normal size measuring 3.7 x 1.9 x 3.0 cm. The there is a single follicle greater than 10 mm measuring 10.1 x 6.2 mm. Additionally there are seven follicles measuring 2.4 - 9.0 mm. In addition, there is a complex cyst measuring 2.1 x 2.0 x 2.0 cm. Possibly an hemorrhagic cyst. Left ovary: In the left ovary is normal size measuring 4.7 x 2.4 x 2.9 cm. There are no follicles that are greater than 10 mm. There are 16 follicles measuring 2.99 - 9.1 mm. In addition there is a complex cyst measuring 2.2 x 1.2 x 1.6 cm. This is possibly an hemorrhagic cyst. The uterus is retroflexed and normal size measuring 8.9 x 4.8 x 5.3 cm. The endometrial stripe is not thickened measuring 5.1 mm Electronically Signed by Román Muir MD 12/18/2019 11:03 A
[2019-12-18 12:21] LABS: PROGESTERONE 1.17 NG/ML
[2019-12-18 12:23] LABS: ESTRADIOL 96.8 PG/ML; FOLLICLE STIMULATING HORMONE 9.6 mIU/mL; LUTEINIZING HORMONE 7.6 mIU/mL
== END ==
LOC: M RAD 09:57
PROVIDERS: ATTEND Obstetrics & Gynecology Reproductive Endocrinology
DX: E28.9 Ovarian dysfunction, unspecified (principal)

== ENCOUNTER → 2019-12-25 | Outpatient (CLI) | payer OTHER ==
[~2019-12-25] MED LIST changes: -LIDO1SOL8 MT; -LIDO1SOL8 PO; +LIDO2SOL17 MT; +LIDO2SOL17 PO
--- NOTE | 2019-12-25 09:05 | REP ---
Clinical: Infertility. Technique: Transvaginal examination. Comparison: 12/18/2019. Findings: Uterus measures 8.9 x 4.8 x 5.4 cm. Endometrial complex measures 5.3 mm thickness. Small stable 9 mm cystic structure within the right side of the uterus is unchanged in appearance. Small amount of free fluid extends into the right yoshi pelvis surrounding the right ovary. Right ovary measures 4.1 x 2.3 x 2.4 cm and includes three sub centimeter follicles measuring between 2.6 and 9.8 mm along with hemorrhagic cyst measuring 15 mm diameter (slightly decreased in size from prior examination). Left ovary measures 3.5 x 3.1 x 3.0 cm and includes approximately 13 sub centimeter follicles measuring between 3.2 and 7.0 mm. Impression: 1. No change in the small 9 mm cystic structure within the uterus which may represent small fibroid. 2. Bilateral ovaries as described above with small amount of free fluid in the pelvis extending to the right adnexal region. Electronically Signed by Kendell Vasquez MD 12/25/2019 08:57 A
[2019-12-25 09:29] LABS: HCG, SERUM QUANTITATIVE < 1.0 MIU/ML
[2019-12-25 10:28] LABS: ESTRADIOL 57.7 PG/ML; FOLLICLE STIMULATING HORMONE 7.1 mIU/mL; PROGESTERONE 10.57 NG/ML
== END ==
LOC: M RAD 07:19
PROVIDERS: ATTEND Obstetrics & Gynecology Reproductive Endocrinology
DX: E28.9 Ovarian dysfunction, unspecified (principal)